=== PATIENT | male | born 1955 | race Caucasian/White ===

== ENCOUNTER 2017-06-22 09:29 | Emergency (ER) | payer SELFPAY ==
--- NOTE | 2017-06-22 09:46 | Emergency Department Record ---
History of Present Illness - General Chief Complaint: Fall Injury Stated Complaint: FALL Time Seen by Provider: 06/22/17 09:36 Source: Patient Mode of Arrival: Ambulatory Limitations: No limitations - History of Present Illness Initial Comments: The patient is here due to L knee pain after falling while working. He was on a dump truck bed and slipped landing on his L side injuring the L knee. He denies hitting his head, any LOC, neck pain, back pain or chest pain. The patient is able to walk with limping and denies any L leg numbness or tingling. MD Complaint: Fall Onset/Timin -: Minutes(s) Fall From: From height (distance) When Fall Occurred: Just prior to arrival Fall Witnessed: Yes, by bystander Place Fall Occurred: Work Loss of Consciousness: None Prolonged Down Time?: No Symptoms Prior to Fall: None Severity: Moderate Severity scale (1-10): 10 Quality: Aching Associated Symptoms: Denies - [place] Coma Scale Eye Response: (4) Open spontaneously Motor Response: (6) Obeys commands Verbal Response: (5) Oriented [place] Total: 15 - Related Data Home Medications Medication Instructions Recorded Confirmed Last Taken No Home Med [NO HOME MEDS] 06/22/17 06/22/17 Unknown Allergies Allergy/AdvReac Type Severity Reaction Status Date / Time No Known Drug Allergies Allergy Verified 06/22/17 09:36 Travel Screening - Travel/Exposure Within Last 30 Days Have you traveled within the last 30 days?: No - Travel/Exposure Within Last Year Have you traveled outside the [place] in the last year?: No - Additonal Travel Details Have you been exposed to anyone with a communicable illness?: No - Travel Symptoms Symptom Screening: None Review of Systems Constitutional: Denies: Chills, Fever Eyes: Denies: Eye discharge ENT: Denies: Congestion Respiratory: Denies: Cough, Dyspnea Past Medical History - SOCIAL HISTORY Smoking Status: Current every day smoker Alcohol Use: Occasional Drug Use: None - RESPIRATORY Hx Respiratory Disorders: No - NEURO Hx Neuro Disorders: No - GI Hx GI Disorders: No - Hx Genitourinary Disorders: No - ENDOCRINE Hx Endocrine Disorders: No - MUSCULOSKELETAL Hx Musculoskeletal Disorders: No - PSYCH Hx Psych Problems: No - HEMATOLOGY/ONCOLOGY Hx Hematology/Oncology Disorders: No Family Medical History Any Significant Family History?: Yes Physical Exam - General General Appearance: Alert, Oriented x3, Cooperative, No acute distress - Head Head exam: Atraumatic, Normocephalic, Normal inspection - Eye Eye exam: Normal appearance, PERRL - Neck Neck exam: Normal inspection, Full ROM. negative: Tenderness - Respiratory Respiratory exam: Normal lung sounds bilaterally. negative: Respiratory distress - Cardiovascular Cardiovascular Exam: Regular rate, Normal rhythm, Normal heart sounds - GI/Abdominal GI/Abdominal exam: Soft, Normal bowel sounds. negative: Tenderness - Extremities Extremities exam: Joint swelling (Mild. There is no ligamentous laxity. Neg anterior drawer sign.), Normal capillary refill, Tenderness (There is diffuse anterior superior L knee tenderness.), Other (The L lower leg and foot are NVI with normal pulses.). negative: Normal inspection (There appears to be a mild L knee joint effusion.), Full ROM (decreased full flexion due to pain.) Course Vital Signs 06/22/17 09:31 Temperature 97.5 F L Pulse Rate 86 Respiratory 16 Rate Blood Pressure 175/100 Pulse Ox 96 - Reevaluation(s) Reevaluation #1: I did speak with Dr. Mendoza and he will see the patient [facility] in [facility]. 06/22/17 10:39 Medical Decision Making - Data Complexity MDM Data: X-Ray Ordered and/or Reviewed - EKG Data EKG: Unchanged From Previous - Radiology Data Radiology results: Report reviewed (L knee: Joint effusion. Neg bony abnormality.) Disposition Disposition: Discharge Clinical Impression: Left knee injury Qualifiers: Encounter type: initial encounter Qualified Code(s): S89.92XA - Unspecified injury of left lower leg, initial encounter Disposition: Home, Self-Care Condition: (1) Good Instructions: Knee Sprain (ED) Additional Instructions: Please wear the Immobilizer and use crutches for the next 3 days with no weight bearing. Use ice to the L knee and elevate the knee when possible. Please use Tylenol or Motrin for pain and see Dr. Mendoza in the [facility] on . Referrals: [facility] [Provider Group] IAM MENDOZA [DOCTOR OF OSTEOPATH] - Forms: Patient Portal Access Time of Disposition: 10:41 Quality - Quality Measures Quality Measures: N/A - Blood Pressure Screening View Details: Yes Does Patient Have Any of the Following: No Blood Pressure Classification: Hypertensive Reading Systolic Measurement: 175 Diastolic Measurement: 100 Screening for High Blood Pressure: < Pre-Hypertensive BP, F/U Documented > [ [id number]] Pre-Hypertensive Follow-up Interventions: Referral to alternative/primary care provider.
[2017-06-22] MEDS: IBUPROFEN 600 MG TABLET PO ONE (09:48)
--- NOTE | 2017-06-24 08:46 | RADIOLOGY REPORT ---
EXAM: LEFT KNEE HISTORY: PAIN AND SWELLING LEFT KNEE AFTER A FALL FROM A TRUCK PRIOR TO ARRIVAL TODAY. TECHNIQUE: Four views of the left knee were obtained. Comparison: None. Encounter: Initial. FINDINGS: No definite fracture or dislocation of the left knee identified. There may be a joint effusion present. IMPRESSION: 1. POSSIBLE JOINT EFFUSION. 2. NO FRACTURE OR DISLOCATION OF THE LEFT KNEE EVIDENT. JOB NUMBER: [id number] MTDD
== END 2017-06-22 10:56 | disposition home or self-care (01) ==
LOC: ER 09:29
DX: S89.92XA Unspecified injury of left lower leg, initial encounter (principal); W01.0XXA Fall on same level from slipping, tripping and stumbling without subsequent striking against object, initial encounter; Y99.0 Civilian activity done for income or pay
CPT/HCPCS: 99283